=== PATIENT | female | born 1975 | race Caucasian/White ===

== ENCOUNTER 2024-06-25 15:18 | Emergency (ER) | payer OTHER, SELFPAY ==
[2024-06-25 15:44] VITALS: BP 146/103; PULSE 95; RESP 20; TEMP 36.6; O2SAT 100; BMI 31.2
--- NOTE | 2024-06-25 15:46 | ED_ITS ---
HPI - Psych General Chief Complaint: Psychiatric Symptoms Stated Complaint: Psych/primary dr sent in Time Seen by Provider: 06/25/24 16:05 Source: patient Mode of arrival: ambulatory Limitations: no limitations History of Present Illness ED Provider: Kerri Peters NP HPI Narrative: Patient is a 49-year-old female who presents to the emergency department for evaluation. Her father brought her here today after coming from the PCPs office. Patient was speaking with her PCP in regards to generalized depression in regards to recent life stressors surrounding and extensive your long history with a right knee injury. She reported to her PCP that she was having some suicidal ideations last week and states that she had attempted to suffocate herself. She discloses during the initial triage, she does not wish to speak to me in regards to this. She states that she is not having any suicidal ideations at this time nor homicidal ideations. She expresses significant depression and anxiety feelings of helplessness and hopelessness been quite constant injury Her doctor had asked her whether she woke felt safe at home? and her response was ?no? however she states that she met this physically due to her decreased mobility with the knee. She states that she does not feel unsafe due to his state of her mental health. She reports that she is currently receiving antibiotic infusions through her PICC line for septic joint, right knee, is due for her infusion at 18:00, is not certain which medication this is it is through [facility] will attempt to access the records. She reports that functionally she is able to get around at home and walk but it is painful to do so, she has a [employer] 3. Reina but feels that she would benefit from additional hours. She has no interest in going to short-term rehab. And furthermore her orthopedist has stated that she should not engage in physical therapy exercises until July. She would likely not benefit much from case management/PT evaluation at this time. She is amenable to use speaking with care team at this time, she is a bit resistant at 1st and quite upset that she needed to change into hospital attire. She would like assistance with establishing care with a therapist in an outpatient setting. She does not follow with therapist more psychiatrist. Related Data Allergies Allergy/AdvReac Type Severity Reaction Status Date / Time morphine AdvReac Gastrointestinal Verified 06/25/24 15:52 Upset Review of Systems 2 Review of Systems: Yes all other systems are reviewed and are negative PMFSH Past Medical History Attestation statement: The following information was validated with the patient. Source: old records reviewed Social History Social History Smoked in Last 30 Days: No Use of substances other than those prescribed or required for medical reasons: No Advance Directives: No Advance Directives Information Provided: No Physical Exam 2 Vital Signs: Vital Signs: Last Vital Signs Temp 97.8 F 06/25/24 17:56 Pulse 87 06/25/24 17:56 Resp 16 06/25/24 17:56 BP 133/77 06/25/24 17:56 Pulse Ox 97 06/25/24 17:56 O2 Del Method Room Air 06/25/24 17:56 BMI result Body Mass Index 31.2 Appearance: Alert.?Oriented to person, place and time. No acute distress.?Normal affect. Eyes: Pupils equal, round and reactive to light.? ENT: Pharynx normal.?? Neck: Normal inspection.? Neck supple.?? CVS: Heart sounds normal. Normal heart rate and rhythm.? Pulses normal.?? Respiratory: No respiratory distress.? Lung sounds clear to auscultation bilaterally?? Abdomen: Soft and non-tender. Normoactive bowel sounds. ? Skin: Skin warm and dry.? Normal skin color.? Extremities: Decreased AROM to right knee, surgical scar present with a midline scab, appears consistent with a healing surgical wound, no overlying erythema or warmth.? No calf ttp? Neuro: Moves all extremities spontaneously. Sensation intact bilaterally. CN II- XII intact. No focal neuro deficits. Ambulates with antalgic gait. Course Course Course Narrative: This is an RME: Additional HPI, ROS, PE not included below will be deferred to primary provider. RME assessment and note performed by: Nelia Soni PA-C This is a [id number]-female, with a hx of ADHD, OCD, hypothyroidism, PCOS, PMDD, diabetes, HLD, osteoarthritis, psoriatic arthritis, asthma, who presents to the ER with complaints of suicidal ideations. She reports that she has been disabled since age 24. She currently has shashi visiting with her. She had surgery on her knee however there was a hairline fracture that was undetected, went septic and had to be placed on IV antibiotics unsure of name. Dr. Manuel Armijo, orthopedics through [facility]. Has severe OCD and is currently living with her parents, and believes that it is not physically safe for her to be at her parents house. Pt with tangential thoughts in triage. She reports passive SI without a plan. Plan: Labs, UA, care team, Reevaluation(s) Reevaluation #1: In attempt to obtain information regarding her antibiotics which is cefazolin 2g q8 hours until 07/19/2024, I was able to access the PCP office note from today. It appears as though she disclosed to her PCP that 1 week ago she was standing on a stool in the bathroom with overall wrapped around her neck and tied to a hook on the wall with thought that she was simply take the stool away and hang herself but at the last minute she ?chickened out? being afraid that she would not be successful and so we aborted the effort. Additionally this note entails that a couple of nights ago when she went to bed she covered her nose and mouth with multiple of taking the idea that she would fall asleep and suffocate to in her sleep but the tape kept coming loose because saliva and moisture in her attempt to free taper herself over and over again she was ultimately unsuccessful. Time: 17:16 Reevaluation #2: Care team met with patient, plan for disposition; [facility] - telehealth service for partial hospitalization program. Appointment scheduled for 06/27/2024. Patient is amenable to this plan of care. Was evaluated by care team, does not meet criteria for inpatient level of care. At this time she did disclose that the reported attempt of the hanging was actually in the summer and not 1 week ago. In the attempt of attempted defecation was 1 week ago. She appears to have a clear thought process, at this time adamantly denying any suicidal ideation/active plan. Safety planning discussed with family and they are amenable to patient being discharged home she currently resides with them. [facility] has a [facility] program to facility establishing care with a therapist they will reach out tomorrow. Physician observation ending at this time. Time: 20:22 Medications Administered Generic Name Dose Route Start Last Admin Trade Name Freq PRN Reason Stop Dose Admin Heparin Sodium (Porcine) 50 0 units 06/25/24 19:00 06/25/24 18:57 units/ Sodium Chloride 5 ml IVFLUSH 50 unit TID JIMBO Administration Cefazolin Sodium/Dextrose 2 gm in 50 mls @ 100 mls/hr 06/25/24 17:30 06/25/24 18:21 Ancef IV 07/19/24 09:00 Infused Q8H JIMBO Infusion Medical Decision Making Medical Decision Making [facility] Narrative: Patient is a 49-year-old female with past medical history of ADHD, OCD, hypothyroidism, P TOS, PMDD, diabetes, hyperlipidemia, osteoarthritis, psoriatic arthritis, asthma, recent surgeries to the right knee for reported patellar fracture and subsequent re-injury and fracture hardware by patient's account ultimately resulting in septic joint to the right knee and is currently on IV antibiotics, followed by orthopedics through [facility], Dr. Manuel Armijo. Patient presents today from PCP office in regards to recent suicidal ideations as per HPI. She reports that over the past year she has had these passive thoughts because of her stressors surrounding her medical condition with her right knee. There is an initial report in the nursing triage that she had attempted to suffocate herself last week, however she will not discuss this matter with myself. She states that she has no intention or current suicidal ideations. When her PCP was enquiring whether she felt safe at home she reported no but by her account this was due to her physical abilities. As per HPI, she will not consider short-term rehab, has not been advised to engage in physical therapy until cleared by Orthopedics, and simply would like assistance with increasing her. Reina hours which I did inform her she would have to speak to her director of casework services through their agency, or case management department be unable to facilitate this. She is amenable to seeing the care team I think that she would benefit from establishing outpatient services. Plan to obtain serum labs for medical clearance. Will attempt to obtain records from [facility] regarding her antibiotics. Differential Diagnosis Differential Diagnoses: The differential diagnosis associated with the presentation includes (See narrative above and below for further detail) Admission/Observation Consideration of admission/observation: Escalation of care including admission/observation considered Patient is being observed in the Emergency Department for depression and anxiety. Observation time was started at 17:07 on 06/25/2024.?The patient is currently stable and non-toxic appearing. Observation is being initiated in the Emergency Department to allow time to help differentiate if the patient's depression and anxiety is due to Substance Induced Mood Disorder and Anxiety versus Major Depressive Disorder, Bipolar Sheri, Bipolar Depression, and Schizophrenia. The patient will receive frequent psychiatric assessments from the provider as well as from nursing staff. The patient will also be monitored for the need of PRN agitation medications such as Haldol, Ativan, and Benadryl. Consult Healthcare Provider Management of the patient was discussed with: Behavioral Health Provider (See course narrative) Lab Data MDM Lab Attestation statement: I reviewed the patient's lab results. CBC is without leukocytosis, has a microcytic anemia that does not meet transfusion criteria no thrombocytopenia. No electrolyte derangement. No MAURA. LFTs overall unremarkable within normal limits. Urinalysis without evidence of infection. Urine toxicology positive for marijuana only. Ethyl alcohol level nondetectable. 06/25/24 16:42 06/25/24 16:42 Labs: Lab Results 06/25/24 06/25/24 Range/Units 16:41 16:42 WBC 9.1 (4.8-10.8) X10*3/uL RBC 4.66 (4.20-5.50) X10*6/uL Hgb 10.8 L (12.0-16.0) g/dl Hct 33.9 L (37.0-47.0) % MCV 72.7 L (80.0-98.0) fL MCH 23.2 L (27.0-33.0) pg MCHC 31.9 (31.0-35.0) g/dl RDW 16.7 H (11.0-16.0) % Plt Count 399 (160-400) X10*3/uL MPV 9.6 (9.4-12.3) fL Immature Gran % (Auto) 0.3 (0.0-0.4) % Neut % (Auto) 69.8 (45-73) % Lymph % (Auto) 21.0 (20-40) % [place] % (Auto) 7.4 (2-11) % Eos % (Auto) 0.8 (0-4) % Baso % (Auto) 0.7 (0-2) % Lymph # (Auto) 1.9 (1.2-4.9) X10*3/uL [place] # (Auto) 0.7 (0.1-1.2) X10*3/uL Eos # (Auto) 0.1 (0.0-0.4) X10*3/uL Baso # (Auto) 0.1 (0.0-0.2) X10*3/uL Abs Immat Gran (auto) 0.03 (0.00-0.03) X10*3/uL Absolute Neuts (auto) 6.3 (2.0-8.3) x10*3/uL Absolute Nucleated RBC 0.000 (0.0-0.012) X10*3/uL Nucleated RBC % (auto) 0.0 (0.0-0.2) /100WBC Sodium 140 (135-145) mmol/L Potassium 3.8 (3.3-5.1) mmol/L Chloride 102 (96-108) mmol/L Carbon Dioxide 25 (22-29) mmol/L Anion Gap 17 (12-20) BUN 9 (9-16) mg/dL Creatinine 0.63 (0.5-1.4) mg/dL Estim Creat Clear Calc 93.9 Estimated GFR > 60 Random Glucose 112 (60-115) mg/dL Calcium 9.1 (8.4-10.2) mg/dL Total Bilirubin 0.3 (0.0-1.0) mg/dL Direct Bilirubin 0.1 (0.0-0.5) mg/dL AST 18 (5-31) U/L ALT < 6 (0-31) U/L Alkaline Phosphatase 90 (39-117) U/L Total Protein 7.6 (6.5-8.0) g/dL Albumin 4.0 (3.5-5.0) g/dL Urine Color Yellow Urine Appearance Clear Urine pH 7.0 (5.0-9.0) Ur Specific [place] <= 1.005 (1.005-1.025) Urine Protein Negative (Neg-Trace) mg/dL Urine Glucose (UA) Negative (Negative) mg/dL Urine Ketones Negative (Negative) mg/dL Urine Blood Negative (Negative) Urine Nitrite Negative (Negative) Ur Leukocyte Esterase Negative (Negative) Urine Opiates Screen Not Detected (Not Detect) Ur Buprenorphine Scrn Not Detected (Not Detect) ng/mL Ur Oxycodone Screen Not Detected (Not Detect) ng/mL Urine Methadone Screen Not Detected (Not Detect) ng/mL Urine Fentanyl Screen Not Detected (Not Detect) Ur Barbiturates Screen Not Detected (Not Detect) Ur Phencyclidine Scrn Not Detected (Not Detect) Ur Amphetamines Screen Not Detected (Not Detect) U Benzodiazepines Scrn Not Detected (Not Detect) Urine Cocaine Screen Not Detected (Not Detect) U Marijuana (THC) Screen POSITIVE H (Not Detect) Ethyl Alcohol < 10 mg/dL Independent Historian Clinical information obtained from an independent historian. History obtained from or confirmed by: Other (Father) External Record Review External record reviewed: Outpatient record Prescription Management I considered prescription management with: Other (See narrative above) Chronic Conditions Patient?s care impacted by: Other (See narrative above) Discharge Plan Discharge Clinical Impression: Depression Patient Disposition: Home, Self-Care Instructions: Depression (ED) Additional Instructions: You were evaluated in the emergency department today for your concerns of ongoing depression and anxiety, feelings of hopelessness and helplessness. You expressed concerning statements to your primary care doctor regarding recent suicidal thoughts/attempts. You have reported to us that there has been no attempt for 1 week. In the you are not currently having suicidal thoughts. Our care team/behavioral health team has also spoken with your family, and plan has been made for you to be discharged home. disposition; [facility] - telehealth service for partial hospitalization program. Appointment scheduled for 06/27/2024. [facility] has a [facility] program to facility establishing care with a therapist they will reach out tomorrow. Return to emergency department any new or worsening symptoms or concerns Referrals: Physician,Zuri J [Primary Care Provider] - Interventions: [place]amus-Suicide Risk Severity Scale Last Done: 06/25/24 17:25 Print Language: Indonesian
[2024-06-25 16:47] LABS: MANUAL DIFF FLAG NO
[2024-06-25 16:57] LABS: Basophils Absolute Auto 0.1 X10*3/uL (0.0-0.2); Basophils Percent Auto 0.7 % (0-2); Eosinophils Absolute Auto 0.1 X10*3/uL (0.0-0.4); Eosinophils Percent Auto 0.8 % (0-4); Hematocrit 33.9 % (37.0-47.0); Hemoglobin 10.8 g/dl (12.0-16.0); Imm Gran Abs Auto 0.03 X10*3/uL (0.00-0.03); Imm Gran Pct Auto 0.3 % (0.0-0.4); Lymphocytes Absolute Auto 1.9 X10*3/uL (1.2-4.9); Mean Corpuscular HGB Conc 31.9 g/dl (31.0-35.0); Mean Corpuscular Hemoglobin 23.2 pg (27.0-33.0); Mean Corpuscular Volume 72.7 fL (80.0-98.0); Mean Platelet Volume 9.6 fL (9.4-12.3); Monocytes Absolute Auto 0.7 X10*3/uL (0.1-1.2); Monocytes Percent Auto 7.4 % (2-11); Neutrophils Absolute Auto 6.3 x10*3/uL (2.0-8.3); Neutrophils Percent Auto 69.8 % (45-73); Platelet Count 399 X10*3/uL (160-400); Red Blood Count 4.66 X10*6/uL (4.20-5.50); Red Cell Distribution Width 16.7 % (11.0-16.0); White Blood Count 9.1 X10*3/uL (4.8-10.8)
[2024-06-25 16:59] LABS: Appearance Urine Clear; Color Urine Yellow; Glucose Urine UA Negative (Negative); Leukocyte Esterase Urine Negative (Negative); Nitrite Urine Negative (Negative); Specific Gravity - Urine <= 1.005 (1.005-1.025); Urine Blood Negative (Negative); Urine Ketones Negative (Negative); Urine Protein Negative (Neg-Trace)
[2024-06-25 17:02] LABS: Amphetamine Screen Urine Not Detected (Not Detect); Barbiturates, Urine Not Detected (Not Detect); Benzodiazepines Screen Urine Not Detected (Not Detect); Buprenorphine Scr Not Detected (Not Detect); Cannabinoid Screen Urine POSITIVE (Not Detect); Cocaine Screen Urine Not Detected (Not Detect); Fentanyl, urine Not Detected (Not Detect); Methadone Screen, Urine Not Detected (Not Detect); Opiate Screen Urine Not Detected (Not Detect); Oxycodone Screen Urine Not Detected (Not Detect); Phencyclidine Screen Urine Not Detected (Not Detect)
[2024-06-25 17:09] LABS: Alanine Aminotransferase < 6 U/L (0-31); Alkaline Phosphatase 90 U/L (39-117); Anion Gap 17 (12-20); Aspartate Amino Transferase 18 U/L (5-31); Bilirubin Direct 0.1 mg/dL (0.0-0.5); Bilirubin Total 0.3 mg/dL (0.0-1.0); Blood Urea Nitrogen 9 mg/dL (9-16); Calcium 9.1 mg/dL (8.4-10.2); Carbon Dioxide 25 mmol/L (22-29); Chloride 102 mmol/L (96-108); Creatinine Clr Calc Pharmacy 93.9; Estimated Glomerular Filt Rate > 60; Ethanol < 10 mg/dL; Glucose Random 112 mg/dL (60-115); Potassium 3.8 mmol/L (3.3-5.1); Sodium 140 mmol/L (135-145); Total Protein 7.6 g/dL (6.5-8.0)
--- NOTE | 2024-06-25 17:27 | PC.NURSE ---
Patient arrived from PCP`s office after seeing pcp for a routine f/u apt. Patient reporst had an SI attempt recently - states attempt was caused y having to live with her voodoo [place] mother and father. Reports chronic right knee pain. denies current thoughts of SI- states was just feeling hopeless at the time. Changed into hospital attire- dad took all belongings home, 1:1 at bedside for safety.
[2024-06-25] MEDS: ceFAZolin Sodium/Dextrose,Iso 2 GM/50 ML PIGGYBACK IV (17:51)
--- NOTE | 2024-06-25 17:53 | MHC.CARE ---
CARE Team spoke with Pt's mother (Jimmie; [phone]) who reports that Pt resides with her, her and younger daughter at this time. She reports that Pt has been very depressed about her knee for the past year. She reports that Pt fell on New last year and went to a physical therapy rehab; We didn't know it was broken in half and they were making her do exercises on it. She reports Pt required knee surgery with screws and wires. She reports shortly after Pt fell again, which broke a screw and required knee surgery again which eventually turned septic. She currently recieves in-home care through [facility] however it's not enough. She expresses that Pt has been through the mill this year and experiences a significant amount of pain on a daily basis. Pt's mother reports Pt has expressed feeling like hell is probably a better place than living. She denies knowledge of Pt doing anything recently to harm herself and expresses, I really don't think she would do anything to harm herself. She reports Pt does have a hx on one prior attempt when Pt was in her 20's; She took a bunch of medication that required her to go to the hospital. She was unable to identify what medication Pt had intentionally overdosed on. She reports that in December 2023, Pt got real drunk because she was in so much pain and said that she wanted to .
[2024-06-25 17:56] VITALS: BP 133/77; PULSE 87; RESP 16; TEMP 36.6; O2SAT 97
[2024-06-25] MEDS: Heparin Sodium,Porcine Flush 50 UNITS, 0.9 % Sodium Chloride Flush 5 ML IVFLUSH (18:57)
[2024-06-25 21:01] VITALS: BP 127/71; PULSE 85; RESP 18; TEMP 36.6; O2SAT 95
[2024-06-25 21:07] VITALS: BP 127/71; PULSE 85; RESP 18; TEMP 36.6; O2SAT 95
== END 2024-06-25 21:58 | disposition home or self-care (01) ==
PROVIDERS: Physician Assistant Medical; Emergency Provider Emergency Medicine
DX: F32.A Depression, unspecified (principal); R45.851 Suicidal ideations
CPT/HCPCS: 36415; 80048; 80076; 80307; 81003; 85025; 96365; 99284; 99285; J0690; J1642